=== PATIENT | male | born 1955 | race Caucasian/White ===

== ENCOUNTER 2020-08-29 17:51 | Emergency (ER) | payer MEDICARE, BC ==
[~2020-08-29] VITALS: Ht 177.8 cm; Wt 92.5 kg
== END 2020-08-29 21:40 | disposition home or self-care (01) ==
LOC: ER 17:51
DX: S61.412A Laceration without foreign body of left hand, initial encounter (principal); Z23 Encounter for immunization; W45.8XXA Other foreign body or object entering through skin, initial encounter
CPT/HCPCS: 12002; 90471; 90714; 99282-25

== ENCOUNTER 2024-08-11 09:43 | Day surgery (SDC) | payer OTHER ==
[~2024-08-11] VITALS: Ht 177.8 cm; Wt 87.7 kg
[~2024-08-11 09:43] MED LIST: Aspirin325 MG PO; Balanced Salt Epinephrine Irrigation Solution 500 mL IR SCH; Diazepam 5 MG Tab PO PRN; Diazepam 5 MG Tab PO SCH; IBUP200 PO; Lidocaine HCl/Pf 1% 5 ML VIAL XX SCH; MASOPHEN500 M1 PO; Moxifloxacin HCL 0.5 MG/0.1 ML 0.4MLSYR RIGHTEYE SCH; Ondansetron 4 MG SoluTab MM PRN; PHENYLEPHRINE\\TROPICAMIDE\\TETRACAINE OPHTHALMIC DILATING SOLN RIGHTEYE PRN; Povidone-Iodine 450 DROP/30 ML Solution ONE; Povidone-Iodine 450 DROP/30 ML Solution RIGHTEYE SCH; Tetracaine HCl/Pf 0.5% Opth Soln 4 ml ONE; Triamcinolone Inj Susp 40 MG / ML 1ML Vial INJ SCH; Triamcinolone Inj Susp 40 MG / ML 1ML Vial ONE
[2024-08-11] MEDS ORDERED: Diazepam 10 MG Tab ONE (10:11)
--- NOTE | 2024-08-11 10:38 | NUR ---
08/11/24 Ne May PT REPORTS ANXIETY LEVEL 5/10 PRIOR TO ADMINISTRATION OF VALIUM 10MG PO @ 1027. TETRACAINE IN AT 1029, PLEDGETT IN AT 1030. CALL LIGHT IN PLACE. SPO2 AND HR MONITORING IN PLACE.
--- NOTE | 2024-08-11 11:21 | NUR ---
08/11/24 Russ1 Oriana Pillai BP-169/84 P-65 SPO2-100% 10ML BLOW BY O2
[2024-08-11 11:46] VITALS: BP 148/77
== END 2024-08-11 12:03 | disposition home or self-care (01) ==
LOC: ORSCSDS 09:43
PROVIDERS: Ophthalmology
PROC: 08RJ3JZ Replacement of Right Lens with Synthetic Substitute, Percutaneous Approach (ICD-10-PCS; principal; 2024-08-11 11:30)
DX: H25.811 Combined forms of age-related cataract, right eye (principal); Z96.1 Presence of intraocular lens; H52.201 Unspecified astigmatism, right eye; H43.811 Vitreous degeneration, right eye; H04.123 Dry eye syndrome of bilateral lacrimal glands; Z79.82 Long term (current) use of aspirin
CPT/HCPCS: A9270; J3301; V2632